=== PATIENT | female | born 1985 | race Caucasian/White ===

== ENCOUNTER → 2017-02-01 | Outpatient (CLI) | payer OTHER | LOC: FIMAGING 10:26 | PROVIDERS: ATTEND Obstetrics & Gynecology | DX: Z36 Encounter for antenatal screening of mother (principal); Z3A.12 12 weeks gestation of pregnancy ==

== ENCOUNTER → 2017-03-21 | Outpatient (CLI) | payer OTHER | LOC: FIMAGING 07:22 | PROVIDERS: ATTEND Obstetrics & Gynecology | DX: Z34.02 Encounter for supervision of normal first pregnancy, second trimester (principal); Z82.79 Family history of other congenital malformations, deformations and chromosomal abnormalities; Z3A.19 19 weeks gestation of pregnancy ==

== ENCOUNTER → 2017-04-26 | Outpatient (CLI) | payer OTHER | LOC: FIMAGING 10:14 | PROVIDERS: ATTEND Obstetrics & Gynecology | DX: Z34.02 Encounter for supervision of normal first pregnancy, second trimester (principal); Z3A.24 24 weeks gestation of pregnancy ==

== ENCOUNTER 2017-08-03 17:45 | Observation (INO) | payer OTHER | END 2017-08-03 21:10 | disposition home or self-care (01) | LOC: FLD 17:45 | PROVIDERS: ADMIT Obstetrics & Gynecology; ATTEND Obstetrics & Gynecology | DX: O47.1 False labor at or after 37 completed weeks of gestation (principal); Z3A.38 38 weeks gestation of pregnancy | CPT/HCPCS: 59025; G0378 ==

== ENCOUNTER 2017-08-19 07:30 | Inpatient (IN) | payer OTHER ==
[2017-08-19] MEDS ORDERED: OXYTOCIN 20 UNIT in LR 1,000 ML IV PRN (11:56)
[2017-08-19] MEDS ORDERED: OLIVE OIL 118 ML BTL MISC PRN (11:56)
[2017-08-19] MEDS ORDERED: TERBUTALINE SULFATE 1 MG/ML VIAL IV PRN (11:56)
[2017-08-19] MEDS ORDERED: EPSOM SALT 454 GM TP PRN (11:56)
[2017-08-19] MEDS ORDERED: LR 500 ML IV PRN (12:03)
[2017-08-19] MEDS ORDERED: AMMONIA AROMATIC 1 EACH AMP IH ONE (12:08)
[2017-08-19] MEDS ORDERED: OXYTOCIN 10 UNIT/ML VIAL ONE (12:08)
[2017-08-19] MEDS ORDERED: LIDOCAINE 1% 300 MG/30 ML SDV ONE (12:08)
[2017-08-19] MEDS ORDERED: OLIVE OIL 118 ML BTL ONE (12:08)
[2017-08-19] MEDS ORDERED: MISOPROSTOL 200 MCG TAB ONE (12:09)
[2017-08-19] MEDS ORDERED: OXYTOCIN 30 UNIT in NS 500 ML IV SCH (12:15)
[2017-08-19 12:33] LABS: % IMMATURE GRANULYOCYTES 0.8 % (0.0-1.1); ABSOLUTE IMMATURE GRANULOCYTES 0.07 10^3/uL (0.00-0.10); ADD DIFF? NO; ADD MORPH? NO; ADD SCAN? NO; ATYPICAL LYMPHOCYTE FLAG 0 (0-99); FRAGMENT RBC FLAG 0 (0-99); HEMATOCRIT 33.9 % (38.0-47.0); HEMOGLOBIN 11.9 g/dL (12.6-16.3); LEFT SHIFT FLG 0 (0-99); LIPEMIA HEMOLYSIS FLAG 90 (0-99); MEAN CELL HEMOGLOBIN 31.5 pg (27.9-34.1); MEAN CELL HEMOGLOBIN CONCENTR. 35.1 g/dL (32.4-36.7); MEAN CELL VOLUME 89.7 fL (81.5-99.8); MEAN PLATELET VOLUME 10.2 fL (8.7-11.7); PLATELET CLUMPS FLAG 0 (0-99); PLATELET COUNT 247 10^3/uL (150-400); RED BLOOD CELL COUNT 3.78 10^6/uL (4.18-5.33); RED CELL DISTRIBUTION WIDTH 13.5 % (11.5-15.2)
[2017-08-19] MEDS: LR 1,000 ML IV PRN (12:59)
--- NOTE | 2017-08-19 13:11 | GHP ---
[f rep st] HISTORY AND PHYSICAL DATE OF ADMISSION: 08/19/2017 ADMITTING DIAGNOSES: 1. Intrauterine at 40 weeks and 5 days. 2. Induction of labor secondary to post dates. HISTORY OF PRESENT ILLNESS: Patient is a 31-year-old, 1, para 0, at 40 weeks and 5 days, with estimated due date 08/14/2017, by last menstrual period 11/07/2016, and consistent with the first-trimester ultrasound. The patient was a transfer of care to [facility] at 26 weeks, previously had care through [facility] [place]. She had genetic testing done and everything was normal. This was secondary to echogenic intracardiac foci seen on heart ventricle on 20 week ultrasound. The patient had a normal echo due to family history of VSD. The patient did receive both Tdap and flu vaccine during this . She developed anemia of and is taking iron. GBS culture is negative. PAST OB HISTORY: The patient is nulliparous. 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 Cycle is every 28 days for 5 days. LMP 11/07/2016. Positive test 12/06/2016. The patient denies history of abnormal Pap smears or any exposure to sexually transmitted diseases. MEDICATIONS: Include vitamins, DHA, and iron. ALLERGIES: No known drug allergies. PAST MEDICAL HISTORY: Exercise induced asthma. PAST SURGERIES: Breast lumpectomy at 19 years of age, 3 cysts drained from left breast, and wisdom teeth extraction. SOCIAL HISTORY: Patient is . She lives with her . She works at [employer]. She denies alcohol, tobacco, or illicit drug use. REVIEW OF SYSTEMS: A 10-point review of systems is negative. Pertinent positives noted in HPI. LABS: A-positive, antibody negative, RPR nonreactive, rubella immune, hepatitis B surface antigen negative, HIV negative, CF negative, varicella immune. Urine culture is negative. Pap, gonorrhea, chlamydia testing all negative, 01/24/2017. Sequential screen in the first-trimester was negative. AFP is negative. Verifi is negative. H and H 10.7, 32. One hour Glucola 80. GBS culture negative. PHYSICAL EXAM: On admission vital signs are stable. Afebrile. GENERAL: Patient is alert, oriented x3. No apparent distress. CARDIOVASCULAR: Regular rate and rhythm. LUNGS: Clear to auscultation bilaterally. ABDOMEN: Gravid, soft, nontender. PELVIC: Echols bulb came out when patient used the restroom this morning. She was found to be 2 cm, 50%, -2 station, intact, cephalic. heart tones are Category 1 tracing with a baseline 140 beats per minute. Positive accelerations. No decelerations. On toco, there is uterine irritability. ASSESSMENT/PLAN: Patient is a 31-year-old, 1, para 0, at 40 weeks and 5 days for a postdate induction. 1. Admit to Labor and Delivery. 2. Status post Echols bulb, will start Pitocin per protocol. 3. GBS culture is negative, no prophylactic antibiotics necessary. 4. The patient desires an epidural. /[id number]/MODL MTDD
[2017-08-19] MEDS ORDERED: NALOXONE HCL 0.4 MG/ML INJ IVP PRN (16:49)
[2017-08-19] MEDS ORDERED: ONDANSETRON 4 MG/2 ML VIAL IVP PRN (16:49)
[2017-08-19] MEDS ORDERED: PHENYLEPHRINE HCL 100 MCG/ML SYR IVP PRN (16:49)
--- NOTE | 2017-08-19 16:51 | PDANEPAE ---
ANE Past Medical History - Cardiovascular History Hx Hypertension: No Hx Arrhythmias: No Hx Chest Pain: No Hx Coronary Artery / Peripheral Vascular Disease: No Hx CHF / Valvular Disease: No Hx Palpitations: No - Pulmonary History Hx COPD: No Hx Asthma/Reactive Airway Disease: No Hx Recent Upper Respiratory Infection: No Hx Oxygen in Use at Home: No Hx Sleep Apnea: No - Endocrine History Hx Diabetes: No Hypothyroid: No Hyperthyroid: No Obesity: mild - Chronic Pain History Chronic Pain: No ANE Review of Systems Review of Systems: - Exercise capacity METS (RN): 5 METS ANE Patient History - Allergies Allergies/Adverse Reactions: No Known Allergies Allergy (Unverified 08/19/17 10:59) - Home Medications Home Medications: Vit27&Calcium/Iron/FA [ Rx 1 Tablet (RX)] 1 each PO DAILY 08/19 [Last Taken 1 Day Ago ~08/18/17] - Smoking Hx Smoking Status: Never smoked ANE Labs/Vital Signs - Labs Result Diagrams: 08/19/17 12:20 - Vital Signs Height: 160.02 cm Weight: 90.718 kg ANE Physical Exam - Airway Neck exam: FROM Mallampati Score: Class 2 Mouth exam: normal dental/mouth exam - Pulmonary Pulmonary: no respiratory distress - Cardiovascular Cardiovascular: regular rate and rhythym - ASA Status ASA Status: II ANE Anesthesia Plan Anesthesia Plan: epidural
[2017-08-19] MEDS ORDERED: fentaNYL 100 MCG/2 ML INJ ONE (16:54)
[2017-08-19] MEDS ORDERED: PHENYLEPHRINE HCL 100 MCG/ML SYR ONE (16:54)
[2017-08-19] MEDS ORDERED: NARCOTIC DRIP BAG-TOTAL ALL TYPES IV PRN (16:55)
[2017-08-19] MEDS ORDERED: FENT2MCG/ML&BUP0.1% 1 EA, fentaNYL 200 MCG, BUPIVACAINE 0.5% 20 ML in NS 100 ML IV SCH (16:55)
[2017-08-19] MEDS ORDERED: LR 500 ML IV SCH (17:00)
[2017-08-19] MEDS ORDERED: fentaNYL 2MCG/ML/BUP 0.1% RTU 100 ML EP SCH (17:00)
--- NOTE | 2017-08-19 18:06 | POSTANESTH ---
Post Anesthetic Evaluation Cardiovascular Status: Normal, Stable Respiratory Status: Normal, Stable Level of Consciousness/Mental Status: Can Participate in Eval Pain Control: Adequate, Prn Tx Ordered Nausea/Vomiting Control: Adequate, Prn Tx Ordered Complications Possibly Related to Anesthesia: None Noted
--- NOTE | 2017-08-19 18:08 | OBPROG ---
Labor Progress Note Assessment/Plan: Assessment: 31 y/o @ 40 5/7 wks for postdate IOL Plan: Pt is s/p epidural, comfortable AROM-meconium stained fluid Pitocin at 10 mu/min, cont per protocol 08/19/17 18:05 Subjective/Intrapartum Course: 08/19/17 18:07 Pt is comfortable, s/p epidural Objective: 08/19/17 12:20 Patient ABO/Rh A POSITIVE 08/19/17 12:20 - SVE Dilation (cm): 4 Effacement (%): 75 Station: -1 Membranes: AROM Amniotic Fluid Color: Meconium Stained - Contraction Pattern Assessment Current Contraction Pattern: Regular (q 3-4 min) - FHR Assessment Armendariz FHR (bpm): 140 FHR Pattern Variability: Moderate FHR Category: 2 (intermittent variable decels x 20 sec) - Procedures Non-surgical Procedures: Amniotomy Oxytocin Orders Assessment - Pre-Induction/Augmentation Assessment Gestational Age: 40 week(s) and 5 day(s) ICD10 Worksheet Patient Problems: Problems Problem Status Onset No leakage of amniotic fluid into vagina Acute
--- NOTE | 2017-08-19 22:54 | OBPROG ---
Labor Progress Note Assessment/Plan: Assessment: 31 y/o @ 40 5/7 wks for postdate IOL Plan: Pitocin at 12 mu/min, cont per protocol IUPC placed without difficulty FHTs - Cat II strip with intermittent late and variable decels, will cont to closely monitor 08/19/17 22:54 Subjective/Intrapartum Course: 08/19/17 18:07 Pt is comfortable, s/p epidural 08/19/17 22:53 Pt is starting to feel back pain and LLQ pain Objective: 08/19/17 12:20 Patient ABO/Rh A POSITIVE 08/19/17 12:20 - SVE Dilation (cm): 5 Effacement (%): 80 Station: 0 Membranes: AROM Amniotic Fluid Color: Meconium Stained - Contraction Pattern Assessment Current Contraction Pattern: Regular (q2-3 min) - FHR Assessment Armendariz FHR (bpm): 150 FHR Pattern Variability: Moderate FHR Category: 2 (Intermittent late and variable decels) - Procedures Non-surgical Procedures: Amniotomy Oxytocin Orders Assessment - Pre-Induction/Augmentation Assessment Gestational Age: 40 week(s) and 5 day(s) ICD10 Worksheet Patient Problems: Problems Problem Status Onset No leakage of amniotic fluid into vagina Acute
--- NOTE | 2017-08-20 00:23 | OBPROG ---
Labor Progress Note Assessment/Plan: Assessment: 31 y/o @ 40 6/7 wks for postdate IOL Plan: Pitocin at 12 mu/min Rapid cervical change noted despite inadequate labor FHTs - Cat II strip with intermittent late and variable decels, will cont to closely monitor 08/20/17 00:20 Subjective/Intrapartum Course: 08/19/17 18:07 Pt is comfortable, s/p epidural 08/19/17 22:53 Pt is starting to feel back pain and LLQ pain 08/20/17 00:23 Pt is on all fours with oxygen on. Objective: 08/19/17 12:20 Patient ABO/Rh A POSITIVE 08/19/17 12:20 - SVE Dilation (cm): 9 Effacement (%): 100 Station: +1 Membranes: AROM Amniotic Fluid Color: Meconium Stained - Contraction Pattern Assessment Current Contraction Pattern: Regular (q2-3 min) - FHR Assessment Armendariz FHR (bpm): 160 FHR Pattern Variability: Moderate FHR Category: 2 (Intermittent variable and late decels; resuscitation performed and strip now reassuring) - Procedures Non-surgical Procedures: Amniotomy - AP Antepartum Course: 08/20/17 00:24 Postdate IOL; GBS negative Oxytocin Orders Assessment - Pre-Induction/Augmentation Assessment Gestational Age: 40 week(s) and 5 day(s) ICD10 Worksheet Patient Problems: Problems Problem Status Onset No leakage of amniotic fluid into vagina Acute
[2017-08-20] MEDS: LR 1,000 ML IV PRN (02:54)
--- NOTE | 2017-08-20 07:24 | OBPROG ---
Labor Progress Note Assessment/Plan: Assessment: 31 y/o @ 40 6/7 wks for postdate IOL Plan: Pitocin at 16 mu/min Slow cervical change, inadequate labor noted with MVUs no greater than 125 FHTs - Cat II strip with intermittent variable and late decels that resolve with position change Will cont to monitor strip closely 08/20/17 07:19 Subjective/Intrapartum Course: 08/19/17 18:07 Pt is comfortable, s/p epidural 08/19/17 22:53 Pt is starting to feel back pain and LLQ pain 08/20/17 00:23 Pt is on all fours with oxygen on. Objective: 08/19/17 12:20 Patient ABO/Rh A POSITIVE 08/19/17 12:20 - SVE Dilation (cm): 7 Effacement (%): 100 Station: +1 Membranes: AROM Amniotic Fluid Color: Meconium Stained - Contraction Pattern Assessment Current Contraction Pattern: Regular (tachysystole at times) - FHR Assessment Armendariz FHR (bpm): 150 FHR Pattern Variability: Moderate FHR Category: 2 (intermittent variable and late decels that resolve with position change) - Procedures Non-surgical Procedures: Amniotomy - AP Antepartum Course: 08/20/17 00:24 Postdate IOL; GBS negative Oxytocin Orders Assessment - Pre-Induction/Augmentation Assessment Gestational Age: 40 week(s) and 5 day(s) ICD10 Worksheet Patient Problems: Problems Problem Status Onset Post-dates Acute
[2017-08-20] MEDS ORDERED: ACETAMINOPHEN 500 MG TAB PO ONE (08:22)
--- NOTE | 2017-08-20 08:30 | OBPROG ---
Labor Progress Note Assessment/Plan: Assessment: IUP at 40w6d, G1 induction for post dates CARLEE, AROM - mec IUPC - inadeq MVUs on 16 pit but hyperstim ctxns, low amplitude FHTs CAT II - good variability but periodic lates Plan: Will recheck at 9a 08/20/17 08:23 Subjective/Intrapartum Course: 08/19/17 18:07 Pt is comfortable, s/p epidural 08/19/17 22:53 Pt is starting to feel back pain and LLQ pain 08/20/17 00:23 Pt is on all fours with oxygen on. 08/20/17 08:30 Pt doesn't have good pain coverage. Will disc replacing CARLEE vs SAB if we need C /S. Disc reassuring variability but lates, and lack of progress. Objective: 08/19/17 12:20 Patient ABO/Rh A POSITIVE 08/19/17 12:20 - SVE Dilation (cm): 5 Effacement (%): 100 Station: +1 Membranes: AROM Amniotic Fluid Color: Meconium Stained - Contraction Pattern Assessment Current Contraction Pattern: Regular (q 1 1/2 to 2 min on 16, low amplitude) - Procedures Non-surgical Procedures: Amniotomy - AP Antepartum Course: 08/20/17 00:24 Postdate IOL; GBS negative Oxytocin Orders Assessment - Pre-Induction/Augmentation Assessment Gestational Age: 40 week(s) and 5 day(s) ICD10 Worksheet Patient Problems: Problems Problem Status Onset Post-dates Acute
[2017-08-20] MEDS ORDERED: BUPIVACAINE 0.25% 30 ML SDV ONE (08:48)
[2017-08-20] MEDS ORDERED: LR 500 ML IV ONE (09:15)
[2017-08-20] MEDS ORDERED: ceFAZolin 2 GM/DEXTROSE 100 ML IV ONE (09:15)
--- NOTE | 2017-08-20 09:19 | PREANESOB ---
Obstetric Pre-Anesthesia Info - General Info Proposed Procedure: (single shot spinal) : 1 Para: 0 JENNIE: 08/14/17 Gestational Age: 40 week(s) and 5 day(s) - Info Status: Full Term FHR Pattern: Non-reassuring - Labor Status Cervical Dilation per last OB SVE: 5 Station per last OB SVE: +1 Amniotic Fluid Color: Meconium Stained PIH: No Magnesium Sulfate in Use: No Section History: Primary Indications for Current Section: Arrest of Descent, Non-reas. Status Labor Epidural: Yes (Patient with labor epidural but patchy window over left side (hip and low abdomen), will remove labor epidural and plan to perform single shot spinal for .) Anesthesia Allergies/Adverse Reactions: Allergy/AdvReac Type Severity Reaction Status Date / Time No Known Allergies Allergy Unverified 08/19/17 10:59 Home Medications: Medication Instructions Recorded Vit27&Calcium/Iron/FA 1 each PO DAILY 08/19/17 [ Rx 1 Tablet (RX)] Visit Medications: Generic Name Dose Route Start Last Admin Trade Name Freq PRN Reason Stop Dose Admin Diphenhydramine HCl 25 - 50 mg 08/19/17 16:49 Benadryl Injection IVP 02/15/18 16:48 Q6HRS PRN Itching Ephedrine Sulfate 10 mg 08/19/17 16:49 Ephedrine Sulfate IV 02/15/18 16:48 .Q2M PRN Hypotension Lactated Ringer's 1,000 mls @ 0 mls/hr 08/19/17 11:56 08/20/17 02:54 Lr IV 08/20/17 11:55 1,000 mls PRN PRN Administration SEE PROTOCOL CONDITIONS Protocol Per Protocol Oxytocin 20 unit/ Lactated 1,002 mls @ 150 mls/hr 08/19/17 11:56 Ringer's IV PRN PRN Post- bleeding Lactated Ringer's 500 mls @ 500 mls/hr 08/19/17 12:03 Lr IV 08/20/17 12:03 PRN PRN Maternal Hypotension Oxytocin 30 unit/ Sodium 503 mls @ 0 mls/hr 08/19/17 12:15 Chloride IV 02/15/18 12:14 CONT JAQUELINE Protocol Per Protocol Lactated Ringer's 500 mls @ 0 mls/hr 08/19/17 17:00 Lr IV 02/15/18 16:59 CONT JAQUELINE As Directed Fentanyl/Bupivacaine HCl 1 ea/ 100 mls @ mls/hr 08/19/17 16:55 Fentanyl 200 mcg/ Bupivacaine IV 08/29/17 16:54 HCl 20 ml/ Sodium Chloride AD JAQUELINE Protocol As Directed Ibuprofen 600 mg 08/19/17 11:56 Motrin PO 02/15/18 11:55 Q6HRS PRN post , inflammation Magnesium Sulfate 454 gm 08/19/17 11:56 Epsom Salt TP 02/15/18 11:55 Q1H PRN perineal discomfort Miscellaneous Medication 1 ea 08/19/17 16:55 Narcotic Drip-Total All Types IV 02/15/18 16:54 PRN PRN Pyxis removal Naloxone HCl 0.4 mg 08/19/17 16:49 Narcan IVP 02/15/18 16:48 PRN PRN Respiratory depression Crocker Oil 118 ml 08/19/17 11:56 Sweet Oil MISC 02/15/18 11:55 ONCE PRN perineal massage Ondansetron HCl 4 mg 08/19/17 16:49 08/20/17 01:36 Zofran IVP 08/20/17 16:48 4 mg Q4HRS PRN Administration Nausea/Vomiting, Can't Take PO Phenylephrine HCl 100 mcg 08/19/17 16:49 Neosynephrine IVP 02/15/18 16:48 .Q2M PRN Hypotension Terbutaline Sulfate 0.25 mg 08/19/17 11:56 Brethine IV 02/15/18 11:55 ONCE PRN Tachysystole Discontinued Medications Generic Name Dose Route Start Last Admin Trade Name Freq PRN Reason Stop Dose Admin Acetaminophen 1,000 mg 08/20/17 08:22 08/20/17 08:27 Tylenol PO 08/20/17 08:23 1,000 mg ONCE ONE Administration Ammonia (Aromatic Spirit) Confirm 08/19/17 12:08 Ammonia Aromatic Administered 08/19/17 12:09 Dose 1 each IH .STK-MED ONE Bupivacaine HCl Confirm 08/20/17 08:48 Sensorcaine 0.25% Sdv Administered 08/20/17 08:49 Dose 30 ml .ROUTE .STK-MED ONE Fentanyl Confirm 08/19/17 16:54 Sublimaze Administered 08/19/17 16:55 Dose 100 mcg .ROUTE .STK-MED ONE Lidocaine HCl Confirm 08/19/17 12:08 Lidocaine Hcl 1% Administered 08/19/17 12:09 Dose 300 mg .ROUTE .STK-MED ONE Misoprostol Confirm 08/19/17 12:09 Cytotec Administered 08/19/17 12:10 Dose 1,000 mcg .ROUTE .STK-MED ONE Morphine Sulfate Confirm 08/20/17 09:14 Morphine Administered 08/20/17 09:15 Dose 2 mg .ROUTE .STK-MED ONE Crocker Oil Confirm 08/19/17 12:08 Sweet Oil Administered 08/19/17 12:09 Dose 118 ml .ROUTE .STK-MED ONE Oxytocin Confirm 08/19/17 12:08 Pitocin Administered 08/19/17 12:09 Dose 50 unit .ROUTE .STK-MED ONE Phenylephrine HCl Confirm 08/19/17 16:54 Neosynephrine Administered 08/19/17 16:55 Dose 1,000 mcg .ROUTE .STK-MED ONE - Anesthesia History Response to Local Anesthetics: Normal Anesthesia & Operative History: No Prior Problems - Vital Signs Height/Weight (Nursing): Height 160.02 cm Weight 90.718 kg - Focused Exam Neck exam: FROM Mallampati Score: Class 2 Mouth exam: normal dental/mouth exam Pulmonary: no respiratory distress Cardiovascular: regular rate and rhythym Labs: 08/19/17 12:20 Patient ABO/Rh A POSITIVE 08/19/17 12:20 - Plan Consent Signed and on Chart: Yes Patient/Guardian Understands and Agrees to Plan: Yes
[2017-08-20] MEDS ORDERED: ceFAZolin 2 GM/SWFI 20 ML SYR IVP ONE (09:30)
[2017-08-20] MEDS ORDERED: LR 1,000 ML IV SCH (09:30)
[2017-08-20] MEDS ORDERED: fentaNYL 100 MCG/2 ML INJ ONE (09:31)
--- NOTE | 2017-08-20 10:04 | OBPROG ---
Labor Progress Note Assessment/Plan: Assessment: IUP at 40w6d, G1 - NO CERVICAL CHANGE induction for post dates CARLEE, AROM - mec IUPC - inadeq MVUs on 16 pit but hyperstim ctxns, low amplitude FHTs CAT II - good variability but persistent lates Plan: No change and pt agrees to porceed with c/s as i can't increase pit due to tachystim 08/20/17 08:23 08/20/17 10:02 Subjective/Intrapartum Course: 08/19/17 18:07 Pt is comfortable, s/p epidural 08/19/17 22:53 Pt is starting to feel back pain and LLQ pain 08/20/17 00:23 Pt is on all fours with oxygen on. 08/20/17 08:30 Pt doesn't have good pain coverage. Will disc replacing CARLEE vs SAB if we need C /S. Disc reassuring variability but lates, and lack of progress. 08/20/17 10:03 Pt agrees with need for c/s - disc c/s and consent signed 08/20/17 10:03 Objective: 08/19/17 12:20 Patient ABO/Rh A POSITIVE 08/19/17 12:20 - SVE Dilation (cm): 5 Effacement (%): 100 Station: +1 Membranes: AROM Amniotic Fluid Color: Meconium Stained - Contraction Pattern Assessment Current Contraction Pattern: Regular (q 1 1/2 to 2 min on 16, low amplitude) - FHR Assessment Armendariz FHR (bpm): 160 FHR Pattern Variability: Moderate FHR Category: 2 - Procedures Non-surgical Procedures: Amniotomy - AP Antepartum Course: 08/20/17 00:24 Postdate IOL; GBS negative Oxytocin Orders Assessment - Pre-Induction/Augmentation Assessment Gestational Age: 40 week(s) and 5 day(s) ICD10 Worksheet Patient Problems: Problems Problem Status Onset Post-dates Acute
[2017-08-20] MEDS ORDERED: ONDANSETRON 4 MG/2 ML VIAL ONE (10:05)
[2017-08-20] MEDS ORDERED: ceFAZolin 1 GM VIAL ONE ×2 (10:05)
[2017-08-20] MEDS ORDERED: OXYTOCIN 100 UNITS/10 ML VIAL ONE (10:05)
[2017-08-20] MEDS ORDERED: DEXAMETHASONE 4 MG/ML VIAL ONE (10:05)
[2017-08-20] MEDS ORDERED: PHENYLEPHRINE HCL 100 MCG/ML SYR ONE ×2 (10:05→10:52)
[2017-08-20] MEDS ORDERED: NALOXONE HCL 0.4 MG/ML INJ IVP PRN (10:34)
[2017-08-20] MEDS ORDERED: ONDANSETRON 4 MG/2 ML VIAL IVP PRN (10:34)
[2017-08-20] MEDS ORDERED: PHENYLEPHRINE HCL 100 MCG/ML SYR IVP PRN (10:38)
[2017-08-20] MEDS ORDERED: fentaNYL 100 MCG/2 ML INJ IVP PRN (10:38)
[2017-08-20 11:00] LABS: CORD BLOOD PCO2 43.9 mmHg (37-60); PH ARTERIAL CORD BLOOD 7.21 (7.10-7.37)
[2017-08-20] MEDS ORDERED: BISACODYL 10 MG SUPP PR PRN (11:22)
[2017-08-20] MEDS ORDERED: MAGNESIUM HYDROXIDE 30 ML UDCUP PO PRN (11:22)
[2017-08-20] MEDS ORDERED: LACTULOSE 20 GM/30 ML UDCUP PO PRN (11:22)
[2017-08-20] MEDS ORDERED: POLYETHYLENE GLYCOL 3350 17 GM PKT PO PRN (11:22)
--- NOTE | 2017-08-20 11:26 | OBDEL ---
Info Type: Primary Presentation at Delivery: Vertex L&D Analgesia/Anesthesia Type: Epidural, Spinal GBS+: No Intrapartum Medications: Generic Name Dose Route Start Last Admin Trade Name Freq PRN Reason Stop Dose Admin Lactated Ringer's 1,000 mls @ 0 mls/hr 08/19/17 11:56 08/20/17 02:54 Lr IV 08/20/17 11:55 1,000 mls PRN PRN Administration SEE PROTOCOL CONDITIONS Protocol Per Protocol Ondansetron HCl 4 mg 08/19/17 16:49 08/20/17 01:36 Zofran IVP 08/20/17 16:48 4 mg Q4HRS PRN Administration Nausea/Vomiting, Can't Take PO Discontinued Medications Generic Name Dose Route Start Last Admin Trade Name Freq PRN Reason Stop Dose Admin Acetaminophen 1,000 mg 08/20/17 08:22 08/20/17 08:27 Tylenol PO 08/20/17 08:23 1,000 mg ONCE ONE Administration - Infant Care Provider Cpc Coder/BACKGROUND CHECK COORDINATOR: Mar Curry - Hospital Course Intrapartum: 08/19/17 18:07 Pt is comfortable, s/p epidural 08/19/17 22:53 Pt is starting to feel back pain and LLQ pain 08/20/17 00:23 Pt is on all fours with oxygen on. 08/20/17 08:30 Pt doesn't have good pain coverage. Will disc replacing CARLEE vs SAB if we need C /S. Disc reassuring variability but lates, and lack of progress. 08/20/17 10:03 Pt agrees with need for c/s - disc c/s and consent signed 08/20/17 10:03 Vaginal Delivery - Labor and Delivery Onset of Contractions Date: 08/19/17 Onset of Contractions Time: 14:15 Rupture of Membranes Date: 08/19/17 Rupture of Membranes Time: 17:50 Amniotic Fluid Color: Meconium Stained Placenta Delivery Date: 08/20/17 Placenta Delivery Time: 10:21 Total Hours of Labor: 20 Non-surgical Procedures: Amniotomy Cord Gases: Cord Gases Cord Blood PCO2 43.9 mmHg (37-60) 08/20/17 10:21 Cord Base Excess -11.0 mEq/L (-13.6--3.2) 08/20/17 10:21 Cord ABG pH 7.21 (7.10-7.37) 08/20/17 10:21 Cord VBG pH TNP 08/20/17 10:21 Operative Report - Delivery Pre-op Diagnoses: IUP at 40w6d, arrest of dilation Post-op Diagnoses: same, delivered History of Prior Section: No Nulliparous Prior to Delivery: No Indications for Current Section: Arrest of Dilation, Non-reas. Status Procedure: Unscheduled, Low Transverse Surgeon: Gem Castro Clinical Evaluator: Geeta Tobias Anesthesiologist: Roel Miranda (SAB after patchy CARLEE) Complications: Other (Specify) (OP position) Findings: uterus, tubes, ovaries all normal. thick mec upon hysterotomy. cord gases sent. deteriorated placenta - delivered by manual removal with friable membranes. Then multiple passes with laps and ring forceps to remove membrane fragments from uterine lining. good uterine tone returned with massage. no extensions to hysterotomy. closed with double layer with good hemostasis. closure routine. pink tinged urine prior to surg from low head and urine in tub conc but clear after procedure. IV Fluid (ml): 1,200 EBL: 1200 Cord Gases: Cord Gases Cord Blood PCO2 43.9 mmHg (37-60) 08/20/17 10:21 Cord Base Excess -11.0 mEq/L (-13.6--3.2) 08/20/17 10:21 Cord ABG pH 7.21 (7.10-7.37) 08/20/17 10:21 Cord VBG pH TNP 08/20/17 10:21 Data JENNIE: 08/14/17 Gestational Age: 40 week(s) and 6 day(s) Armendariz Delivery Date: 08/20/17 Delivery Time: 10:18 Sex of : Female Score (1 Min): 8 Score (5 Min): 9 ICD10 Worksheet Patient Problems: Problems Problem Status Onset delivery delivered Acute
[2017-08-20] MEDS: KETOROLAC 30 MG/1 ML SDV IVP SCH ×2 (15:29→21:33)
--- NOTE | 2017-08-20 17:15 | OBPP ---
Progress Note Assessment/Plan: Assessment: POD 1/2, s/p primary C/S for arrest of dilation Plan: Routine care 08/20/17 08:23 08/20/17 10:02 08/20/17 17:09 Subjective/ Course: 08/20/17 17:12 Pt doing well. Pain well controlled with toradol. Hasn't had success with BF yet - baby with trouble latching. good UOP - concentrated. enzo liquid diet and water. Tired Objective: 08/19/17 12:20 Patient ABO/Rh A POSITIVE 08/19/17 12:20 Temp Pulse Resp BP Pulse Ox 35.8 C L 81 16 96/50 L 96 08/20/17 15:55 08/20/17 15:55 08/20/17 15:55 08/20/17 15:55 08/20/17 15:55 Uterine Position/Fundal Height: Umbilicus -1 Uterine Tone: Firm Physical Exam - Physical Exam Abdomen: non-tender (approp post op tenderness), soft, other (bandage CDI) Extremities: non-tender, pedal edema (moderate) Skin: normal color, warm/dry Neuro/Psych: alert, normal mood/affect
[2017-08-20] MEDS: SENNOSIDES/DOCUSATE SODIUM TAB PO SCH (21:32)
[2017-08-21] MEDS: KETOROLAC 30 MG/1 ML SDV IVP SCH ×2 (03:41→17:07)
--- NOTE | 2017-08-21 09:11 | POSTANESTH ---
Post Anesthetic Evaluation Cardiovascular Status: Normal, Stable, Similar to Pre-Op Cond Respiratory Status: Normal, Stable, Similar to Pre-op Cond. Level of Consciousness/Mental Status: Can Participate in Eval, Alert and Oriented Pain Control: Adequate, Prn Tx Ordered Nausea/Vomiting Control: Adequate, Prn Tx Ordered Complications Possibly Related to Anesthesia: None Noted
[2017-08-21] MEDS: SENNOSIDES/DOCUSATE SODIUM TAB PO SCH ×2 (09:55→21:37)
[2017-08-21] MEDS: HYDROCODONE/APAP 5/325 TAB PO PRN ×4 (09:55→23:43)
[2017-08-21] MEDS: IBUPROFEN 600 MG TAB PO PRN ×3 (09:56→21:37)
--- NOTE | 2017-08-21 11:19 | OBPP ---
Progress Note Assessment/Plan: Assessment: 1) s/p 1 LTCS secondary to intolerance to labor and arrest of dilation POD # 1 - pt is stable 2) Anemia - pt is asymptomatic Plan: Continue routine post-op care Encourage ambulation Pt may shower Will star iron BID Plan for d/c home in 24-48 hrs 08/21/17 11:14 Subjective/ Course: 08/20/17 17:12 Pt doing well. Pain well controlled with toradol. Hasn't had success with BF yet - baby with trouble latching. good UOP - concentrated. enzo liquid diet and water. Tired 08/21/17 11:16 Pt seen and examined. Pain is well controlled on po meds. Doing well, no complaints. Pt is OOB with dizziness, enzo regular diet, voiding and passing flatus. Mod lochia. BF well so far. Objective: 08/21/17 00:45 Patient ABO/Rh A POSITIVE 08/19/17 12:20 Temp Pulse Resp BP Pulse Ox 36.1 C 79 16 90/48 L 91 L 08/21/17 04:00 08/21/17 04:00 08/21/17 04:00 08/21/17 04:00 08/21/17 04:00 Uterine Position/Fundal Height: Umbilicus -1 Uterine Tone: Firm Physical Exam - Physical Exam Respiratory: lungs clear, normal breath sounds Cardiac/Chest: regular rate, rhythm Abdomen: normal bowel sounds, non-tender, soft, flatus (+), incision (C/D/I with steri strips) Extremities: non-tender, normal inspection Skin: normal color, warm/dry Neuro/Psych: alert, normal mood/affect, oriented x 3
[2017-08-21] MEDS: IRON POLYSAC/IRON HEME 28 MG TAB PO SCH ×2 (15:24→21:37)
[2017-08-22] MEDS: IBUPROFEN 600 MG TAB PO PRN ×4 (03:16→21:26)
[2017-08-22] MEDS: HYDROCODONE/APAP 5/325 TAB PO PRN ×5 (03:17→21:25)
[2017-08-22] MEDS: SENNOSIDES/DOCUSATE SODIUM TAB PO SCH ×2 (08:23→21:26)
[2017-08-22] MEDS: IRON POLYSAC/IRON HEME 28 MG TAB PO SCH ×2 (08:23→21:25)
--- NOTE | 2017-08-22 16:26 | OBPP ---
Progress Note Assessment/Plan: Assessment:nipples intact well pain but well managed with pain medication [id number] 'scant rubra lochia incision well approximated swelling in lower extremities +2 bilaterally voiding without difficulty Plan:po day 2 discharge to home tomorrow 08/22/17 16:23 Subjective/ Course: 08/20/17 17:12 Pt doing well. Pain well controlled with toradol. Hasn't had success with BF yet - baby with trouble latching. good UOP - concentrated. enzo liquid diet and water. Tired 08/21/17 11:16 Pt seen and examined. Pain is well controlled on po meds. Doing well, no complaints. Pt is OOB with dizziness, enzo regular diet, voiding and passing flatus. Mod lochia. BF well so far. 08/22/17 16:23 Doing well denies difficulties. Denies passing gas. Able to void without difficulty Objective: 08/21/17 00:45 Patient ABO/Rh A POSITIVE 08/19/17 12:20 Temp Pulse Resp BP Pulse Ox 36.2 C 96 17 106/59 L 97 08/22/17 08:28 08/22/17 08:28 08/22/17 08:28 08/22/17 08:28 08/22/17 08:28 Uterine Position/Fundal Height: At Umbilicus Uterine Tone: Firm Physical Exam - Physical Exam General Appearance: WD/WN, alert, no apparent distress Respiratory: chest non-tender, lungs clear, normal breath sounds Cardiac/Chest: regular rate, rhythm Abdomen: hypoactive bowel sounds, incision (well approximated no redness no ss of infection ss in place) Extremities: normal range of motion, Anne Marie's sign (negative bilaterally) DTR- Lower Extremities: Knee (R): 1+, Knee (L): 1+ (no clonus bilaterally) Skin: normal color, warm/dry Neuro/Psych: no motor/sensory deficits, alert, normal mood/affect, oriented x 3
[2017-08-22 23:20] VITALS: RESP 16
[2017-08-23] MEDS: IBUPROFEN 600 MG TAB PO PRN ×2 (03:10→09:06)
[2017-08-23] MEDS: IRON POLYSAC/IRON HEME 28 MG TAB PO SCH (09:05)
[2017-08-23] MEDS: SENNOSIDES/DOCUSATE SODIUM TAB PO SCH (09:05)
[2017-08-23] MEDS: HYDROCODONE/APAP 5/325 TAB PO PRN (09:05)
--- NOTE | 2017-08-23 09:51 | OBPP ---
Progress Note Assessment/Plan: Assessment: 31 y/o POD #3 s/p LTCS doing well. Plan: D/c home today with [place] and Ibuprofen. Follow-up @ 2,4, and 6 weeks. 08/23/17 09:52 Subjective/ Course: 08/20/17 17:12 Pt doing well. Pain well controlled with toradol. Hasn't had success with BF yet - baby with trouble latching. good UOP - concentrated. enzo liquid diet and water. Tired 08/21/17 11:16 Pt seen and examined. Pain is well controlled on po meds. Doing well, no complaints. Pt is OOB with dizziness, enzo regular diet, voiding and passing flatus. Mod lochia. BF well so far. 08/22/17 16:23 Doing well denies difficulties. Denies passing gas. Able to void without difficulty 08/23/17 09:44 Pt is doing well today with good pain control with [place] and Ibuprofen. She is ambulating, voiding and has min lochia. Breast feeding is going well and her milk is transitioning. They are ready to d/c home. Objective: 08/21/17 00:45 Patient ABO/Rh A POSITIVE 08/19/17 12:20 Temp Pulse Resp BP Pulse Ox 36.8 C 100 16 112/66 98 08/22/17 21:30 08/22/17 21:30 08/22/17 21:30 08/22/17 21:30 08/22/17 21:30 Uterine Position/Fundal Height: Umbilicus -2 Uterine Tone: Firm Physical Exam - Physical Exam Neck: non-tender, full range of motion, supple Respiratory: chest non-tender, lungs clear, normal breath sounds Cardiac/Chest: regular rate, rhythm Abdomen: normal bowel sounds, incision (c/d/i) Extremities: swelling (no), Anne Marie's sign (neg)
[2017-08-23 10:51] VITALS: BP 121/69; PULSE 91; TEMP 97.6; O2SAT 96
== END 2017-08-23 11:50 | disposition home or self-care (01) | DRG 767 ==
LOC: FLD 10:01 → UNDOADMIN 10:01 → FLD 10:47 → FOB 08-20 14:02
PROVIDERS: ADMIT Obstetrics & Gynecology; ATTEND Obstetrics & Gynecology
PROC: 3E033VJ Introduction of Other Hormone into Peripheral Vein, Percutaneous Approach (ICD-10-PCS; principal; 2017-08-19)
PROC: 10D17Z9 Manual Extraction of Products of Conception, Retained, Via Natural or Artificial Opening (ICD-10-PCS; principal; 2017-08-19)
PROC: 10E0XZZ Delivery of Products of Conception, External Approach (ICD-10-PCS; principal; 2017-08-19)
PROC: 10907ZC Drainage of Amniotic Fluid, Therapeutic from Products of Conception, Via Natural or Artificial Opening (ICD-10-PCS; principal; 2017-08-19)
DX: O48.0 Post-term pregnancy (principal); O62.0 Primary inadequate contractions; O43.893 Other placental disorders, third trimester; O77.0 Labor and delivery complicated by meconium in amniotic fluid; O99.03 Anemia complicating the puerperium; O76 Abnormality in fetal heart rate and rhythm complicating labor and delivery; Z3A.40 40 weeks gestation of pregnancy; Z37.0 Single live birth
CPT/HCPCS: G0463; J0690; J1100; J1885; J2370; J2405; J2590; J3010

== ENCOUNTER 2018-09-01 14:22 | Emergency (ER) | payer OTHER ==
--- NOTE | 2018-09-01 14:38 | EDPHY ---
H & P Stated Complaint: L upper chest pain rad to L should bk x 2 days- worse w/ breathing Time Seen by Provider: 09/01/18 14:36 - Personal History LMP (Females 10-55): IUD In Place - Medical/Surgical History Hx Asthma: No Hx Chronic Respiratory Disease: No Hx Diabetes: No Hx Cardiac Disease: No Hx Renal Disease: No Hx Cirrhosis: No Hx Alcoholism: No Hx HIV/AIDS: No Hx Splenectomy or Spleen Trauma: No Other PMH: r breast lumpectomy,. anemia - Social History Smoking Status: Never smoked Constitutional: Initial Vital Signs Temperature (C) 36.5 C 09/01/18 14:25 Heart Rate 82 09/01/18 14:25 Respiratory Rate 16 09/01/18 14:25 Blood Pressure 134/77 H 09/01/18 14:25 O2 Sat (%) 100 09/01/18 14:25 O2 Delivery Mode Room Air Allergies/Adverse Reactions: No Known Allergies Allergy (Verified 09/01/18 14:24) Home Medications: Medication Instructions Recorded Ibuprofen [Motrin] 800 mg PO Q8 #20 tab 09/01/18 Medical Decision Making - Diagnostics Imaging Results: Imaging Impressions Chest X-Ray 09/01/18 14:49 Impression: Normal chest x-ray. Imaging: I viewed and interpreted images myself ED Course/Re-evaluation: CHIEF COMPLAINT: Chest pain HISTORY OF PRESENT ILLNESS: The patient is a 32 y/o with a history of a left lumpectomy complaining of left upper chest pain radiating to her left shoulder and back onset 2 days ago. She last felt normal on Tuesday night, 3 days ago. The chest pain initially developed and was followed by the pain radiating through to her back. Currently it feels like there is a "palm-sized" area of pain on her left chest. Due to this pain she was unable to sleep on her left-side last night. Today she developed the shortness of breath which was accompanied by a minor cough. Taking a deep breath makes the pain worse. 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 She denies prior history of pain, recent long distance trips, swelling in her legs. No fever, headache, abdominal pain, urinary or bowel complaints, numbness, paresthesias. REVIEW OF SYSTEMS: A comprehensive 10 system review of systems is otherwise negative aside from elements mentioned in the history of present illness and medical decision making. PHYSICAL EXAM: HR, BP, O2 Sat, RR. Temp noted General Appearance: Alert, well hydrated, appropriate, and non-toxic appearing. Head: Atraumatic without scalp tenderness or obvious injury Eyes: Pupils equal, round, reactive to light and accommodation, EOMI, no trauma , no injection. Ears: Clear bilaterally, no perforation, normal landmarks Nose: Atraumatic, no rhinorrhea, clear. Throat: There is no erythema or exudates, no lesions, normal tonsils, mucus membranes moist. Neck: Supple, 2+ carotid upstroke, nontender, no lymphadenopathy. Respiratory: No retractions, no distress, no wheezes, and no accessory muscle use. Lungs are clear to auscultation bilaterally. Cardiovascular: Regular rate and rhythm, no murmurs, rubs, or gallops. Bilateral carotid, radial, dorsalis pedis, and posterior tibial pulses intact. Good capillary refill all extremities. Gastrointestinal: Abdomen is soft, nontender, non-distended, no masses, no rebound, no guarding, no peritoneal signs. Musculoskeletal: Normal active ROM of all extremities, atraumatic. Neurological: Alert, appropriate, and interactive. The patient has normal DTRs and non-focal cranial nerves, motor, sensory, and cerebellar exam. Skin: No rashes, good turgor, no nodules on palpation. Past medical history: Anemia Past surgical history: Right lumpectomy Family history: Denies Social history: at bedside, recently delivered baby (1 year ago), lives in [place] DIAGNOSTICS/PROCEDURES/CRITICAL CARE TIME: EKG: The 12 lead EKG was interpreted by myself as sinus rhythm with a rate of 73. See hard copy and/or "tracemaster" electronic copy for interpretation. DIFFERENTIAL DIAGNOSIS: The differential diagnosis for the patient's chest pain included but was not limited to pleurisy, myocardial ischemia, pulmonary embolus, chest wall pain, pleural inflammation, and pulmonary infectious causes. MEDICAL DECISION MAKING: The patient is a 32 y/o with a history of a left lumpectomy presenting with left upper chest pain radiating to her left shoulder and back accompanied by shortness of breath onset 2 days ago. She has a normal physical exam and I am unable to reproduce her chest pain. Labs, chest x-ray, and EKG ordered. 1440: I reviewed patient's EKG as sinus rhythm with a rate of 73. 1515: I reviewed patient's labs; her troponin and d-dimer are normal. She also has a normal chest x-ray. Patient's symptoms are consistent with pleurisy. 1519: Reassessed patient and discussed laboratory and imaging findings. I have advised her to take ibuprofen for her pleurisy and follow up with her primary care provider. Return precautions provided; patient is comfortable with this plan. - Data Points Laboratory Results: 09/01/18 09/01/18 14:59 14:46 D-Dimer 0.36 ug/mLFEU ug/mLFEU (0.00-0.50) POC Troponin I 0.00 ng/mL ng/mL (0.00-0.08) Point of Care Test Results: Chemistry 09/01/18 14:59 POC Troponin I 0.00 ng/mL ng/mL (0.00-0.08) Departure - Departure Disposition: Home, Routine, Self-Care Clinical Impression: Pleurisy Condition: Good Instructions: Pleurisy (ED) Additional Instructions: 1. Take ibuprofen for the pleurisy. 2. Follow-up with your primary doctor within 72 hours. 3. Return to the Emergency Department for fever, chest pain, shortness of breath , increasing pain or other worsening of condition. Referrals: Sara Ferrell MD [[facility] [place] - As per Instructions Prescriptions: Ibuprofen [Motrin] 800 mg PO Q8 #20 tab Report Scribed for: Ricco Norton Report Scribed by: Jennifer Amos Date of Report: 09/01/18 Time of Report: 14:40
[2018-09-01 15:29] VITALS: BP 109/62
--- NOTE | 2018-09-01 22:44 | CPEKG ---
Test Reason : OPEN Blood Pressure : / mmHG Vent. Rate : 073 BPM Atrial Rate : 072 BPM P-R Int : 135 ms QRS Dur : 090 ms QT Int : 413 ms P-R-T Axes : 023 003 037 degrees QTc Int : 456 ms Sinus rhythm Confirmed by Ricco Norton ([id number]) on 09/01/2018 10:44:29 PM Referred By: Confirmed By:Ricco Norton
== END 2018-09-01 15:28 | disposition home or self-care (01) ==
DX: R09.1 Pleurisy (principal)
CPT/HCPCS: 84484-PO